=== PATIENT | male | born 1985 | race Caucasian/White ===

== ENCOUNTER 2017-07-15 11:20 | Emergency (ER) | payer OTHER ==
--- NOTE | 2017-07-15 11:38 | ER Document Report ---
ED Medical Screen (RME) - General Chief Complaint: Hand Pain Stated Complaint: LEFT HAND INJURY Time Seen by Provider: 07/15/17 11:33 Notes: RAPID MEDICAL EVALUATION DISCLOSURE I have seen this patient as part of a Rapid Medical Evaluation and, if applicable, placed any initially appropriate orders. The patient will be seen and fully evaluated, including a full history and physical exam, by a provider ( in Main ED or Fast Track) when a room becomes available. 31-year-old male here with complaints of pain and swelling to his left second digit and palm. He was pressure washing a house and accidentally shot himself with the rag washer at approximately 3000 PSI. He did initially have some pain but does not currently have pain. He is unable to bend his finger. EXAM Small penetrating wound to left second digit with swelling Unable to flex finger - Related Data Allergies/Adverse Reactions: No Known Allergies Allergy (Verified 11/18/12 14:30) Past Medical History - Immunizations Hx Diphtheria, Pertussis, Tetanus Vaccination: Yes - 2009
--- NOTE | 2017-07-15 12:05 | ER Document Report ---
ED Hand/Wrist Injury - General Chief Complaint: Hand Pain Stated Complaint: LEFT HAND INJURY Time Seen by Provider: 07/15/17 11:33 Mode of Arrival: Ambulatory Information source: Patient Notes: 31 yo left handed male accidentally sprayed his left frey index finger (ulnar side) with 3000 psi waterspary causing cut on the finger and injecting tap water into the soft tissue 1.5 hours ago. Not sure when he had last td, wants another today. NKA. Wants somehting for pain. - Related Data Allergies/Adverse Reactions: No Known Allergies Allergy (Verified 07/15/17 11:43) Past Medical History - Social History Smoking Status: Never Smoker Chew tobacco use (# tins/day): No Frequency of alcohol use: Occasional Drug Abuse: None Family History: Reviewed & Not Pertinent Patient has suicidal ideation: No Patient has homicidal ideation: No Neurological Medical History: Reports: Hx Migraine Renal/ Medical History: Denies: Hx Peritoneal Dialysis - Immunizations Hx Diphtheria, Pertussis, Tetanus Vaccination: Yes - 2009 Physical Exam - Vital signs Vitals: Temp Pulse Resp BP Pulse Ox 99.3 F 57 L 18 136/79 H 97 07/15/17 11:32 07/15/17 11:32 07/15/17 11:32 07/15/17 11:32 07/15/17 11:32 Interpretation: Normal - General General appearance: Appears well, Alert - HEENT Head: Normocephalic Pupils: PERRL Neck: Supple - Cardiovascular Murmur: No - Extremities Hand: Tender - 4mm puncture wound left index finger proximal frey phalanx with soft tissue swelling distal left hand frey and dorsal at the MCP, n/v intact. - Neurological Neuro grossly intact: Yes Cognition: Normal Orientation: AAOx4 Archbald Coma Scale Eye Opening: Spontaneous Archbald Coma Scale Verbal: Oriented Archbald Coma Scale Motor: Obeys Commands Yovany Coma Scale Total: 15 Speech: Normal Motor strength normal: LUE, RUE, LLE, RLE Sensory: Normal - Psychological Associated symptoms: Normal affect, Normal mood - Skin Skin Temperature: Warm Skin Moisture: Dry Skin Color: Normal Course - Re-evaluation Re-evalutation: 07/15/17 xray no fx, air in soft tissue from the water injection and puncture, will tx with antibiotics, splint refer to dr. garcia - Vital Signs Vital signs: Temp Pulse Resp BP Pulse Ox 99.3 F 61 18 118/70 97 07/15/17 11:32 07/15/17 13:53 07/15/17 11:32 07/15/17 13:53 07/15/17 13:53 Procedures - Immobilization Left Hand Time completed: 14:00 Pre-Proc Neuro Vasc Exam: Normal Immobilizer type: Volar splint Performed by: RN Post-Proc Neuro Vasc Exam: Normal Alignment checked and good: Yes Discharge - Discharge Clinical Impression: High psi H2O injection injury lt index f, finger Condition: Good Disposition: HOME, SELF-CARE Instructions: Acetaminophen, Augmentin ([facility]), Ibuprofen (General) ([facility]), Non- Sutured Laceration ([facility]), Ultram ([facility]) Additional Instructions: elevate hand splint Ultram Tylenol Motrin Augmentin to prevent infection Observe for signs of infection which would be redness, heat, fever, pus, increased pain Call Monday morning and get an appointment with Dr. Garcia the hand surgeon for follow-up next week Prescriptions: Ibuprofen [Motrin 800 mg Tablet] 800 mg PO Q8HP PRN #30 tablet PRN Reason: Amoxicillin/Potassium Clav [Augmentin 875-125 Tablet] 1 each PO BID #20 tablet Tramadol HCl [Ultram 50 mg Tablet] 50 mg PO ASDIR PRN #15 tablet PRN Reason: Forms: Return to Work Referrals: FLAVIO GRACIA DO [ACTIVE STAFF] - 07/18/17
[2017-07-15] MEDS ORDERED: AMOXICILLIN TR/POT CLAVULANATE 500-125 MG TAB PO ONE (12:12)
[2017-07-15] MEDS ORDERED: AMOXICILLIN TRIHYDRATE 500 MG CAPSULE PO ONE (12:12)
--- NOTE | 2017-07-15 12:13 | RADIOLOGY REPORT (SQ) ---
EXAM DESCRIPTION: HAND LEFT 3 VIEWS COMPLETED DATE/TIME: 07/15/2017 12:03 pm REASON FOR STUDY: mercury washer injury to 2nd digit COMPARISON: None. EXAM PARAMETERS: NUMBER OF VIEWS: Three views. TECHNIQUE: AP, lateral and oblique radiographic images acquired of the left hand. LIMITATIONS: None. FINDINGS: MINERALIZATION: Normal. BONES: No acute fracture or dislocation. No worrisome bone lesions. JOINTS: No effusions. SOFT TISSUES: Gas in the soft tissues of the palm and 2nd finger. No foreign body. OTHER: No other significant finding. IMPRESSION: GAS IN THE SOFT TISSUES. NO SIGNIFICANT BONY FINDINGS. TECHNICAL DOCUMENTATION: JOB ID: [id number] [employer]- All Rights Reserved Reading location - IP/workstation name: [email or web address]
[2017-07-15] MEDS ORDERED: DIPH/PERTUSS(ACELL)/TETANUS VAC/PF 0.5 ML SYR (>=10YO) IM ONE (12:17)
[2017-07-15] MEDS ORDERED: ACETAMINOPHEN 325 MG TABLET PO ONE (12:20)
[2017-07-15] MEDS ORDERED: TRAMADOL HCL 50 MG TABLET PO ONE (12:20)
[2017-07-15 13:56] VITALS: BP 118/70
== END 2017-07-15 13:57 | disposition home or self-care (01) ==
LOC: ER 11:20
DX: S61.231A Puncture wound without foreign body of left index finger without damage to nail, initial encounter (principal); X58.XXXA Exposure to other specified factors, initial encounter; Y99.0 Civilian activity done for income or pay
CPT/HCPCS: 90471; 90715; 99283